=== PATIENT | female | born 1975 | race Caucasian/White ===

== ENCOUNTER 2017-05-10 09:00 | Outpatient (RCR) | payer OTHER | END 2017-06-02 14:04 | disposition home or self-care (01) | LOC: MKS.ESL.PT 09:00 | DX: M25.561 Pain in right knee (principal); M54.12 Radiculopathy, cervical region; Z98.890 Other specified postprocedural states ==

== ENCOUNTER 2018-04-17 06:23 | Inpatient (IN) | payer OTHER ==
[2018-04-17] VITALS (7 sets, daily range): BP systolic 114–133; BP diastolic 60–80; PULSE 79–92; TEMP 98.3–98.4
[~2018-04-17] VITALS: Ht 167.6 cm; Wt 89.1 kg
[2018-04-17] MEDS ORDERED: PRENATAL MVI (19:29)
[2018-04-17 20:19] LABS: BASO % 0.2 % (0.0-2.0); EOS # 0.1 (0.0-0.7); EOS % 0.8 % (0-4.0); GRAN # 7.3 (1.4-6.5); GRAN % 69.7 % (42.2-75.2); HEMATOCRIT 36.4 % (37.0-47.0); HEMOGLOBIN 12.7 g/dl (12.5-16.0); LYMPH # 2.3 (1.2-3.4); LYMPH % 21.7 % (20.0-51.0); MEAN CELL VOLUME 92 fl (80.0-100.0); MEAN CORPUSCULAR HEMOGLOBIN 32 pg (27.0-31.0); MEAN CORPUSCULAR HGB CONC 35 g/dl (33.0-37.0); MEAN PLATELET VOLUME 10.5 fl (7.4-10.4); MONO # 0.7 (0.1-0.6); MONO % 7.1 % (1.7-9.3); PLATELET COUNT 231 K/mm3 (130-400); RED BLOOD COUNT 3.95 M/mm3 (4.10-5.30); REDCELL DISTRIBUTION WIDTH-CV 13.2 % (11.5-14.5)
--- NOTE | 2018-04-17 21:00 | NUR ---
191- Patient ambulatory to LDR-6 with , Jaylon. Patient oriented to room. Patient into restroom to void. 1919- EFM and TOCO on and tracing. Patient denies contractions, LOF, bleeding, or spotting. Patient had US done at [facility] today by . Assessment completed. Consents signed. 1929- IV started. Labs sent. 1999- SVE Closed/-3. Cytotec placed. See eMAR. 2109- See Physician Notification.
[2018-04-18] VITALS (37 sets, daily range): BP systolic 98–149; BP diastolic 48–85; PULSE 69–109; TEMP 97.9–98.7
--- NOTE | 2018-04-18 05:00 | NUR ---
2200- EFM and TOCO off per Cytotec protcol. 2245- EFM and TOCO on and tracing. FHT reassuring. 2300- EFM and TOCO off per Cytotec protocol. 2345- EFM and TOCO on and tracing. FHT reassuring. 0000- SVE Closed/-3. Cytotec 25mg. See eMAR. 0200- EFM and TOCO off per Cytotec protocol. 0245- EFM and TOCO on and tracing. FHT hard to trace due to active baby and maternal position. RN at bedside. FHT heard and reassuring. 0300- EFM and TOCO off per Cytotec protocol. 0345- EFM and TOCO on and tracing. FHT reassuring. 0415- FHT hard to trace due to active baby and maternal position. Moderate variability noted. 0445- Patient up to restroom to void. 0450- SVE Closed/-3 by PHIL rCistobal. Pitocin intiated per protocol at 2mU.
--- NOTE | 2018-04-18 06:15 | NUR ---
Assumed care of patient. Rests in bed with eyes closed. Resperations even and unlabored.
--- NOTE | 2018-04-18 06:45 | NUR ---
Rests in bed, alert. States starting to feel what contractions feel like. Denies any needs at this time.
--- NOTE | 2018-04-18 07:00 | NUR ---
0705 Patient calls out. States has some discharge down there. Amnio test done, moderate amount of red color fluid noted. Amnio swab did not turn. Pad changed, patient repositioned.
--- NOTE | 2018-04-18 08:00 | NUR ---
Ambulates to the bathroom. States might have a bowel movement.
--- NOTE | 2018-04-18 08:45 | NUR ---
Dr. Doss here, visits with patient. Vag exam done, reports cervix thinner than yesterday. Small amount of clear fluid noted with check. New orders given. Dr. Doss states can have fentanyl 50 mcg now.
--- NOTE | 2018-04-18 09:00 | NUR ---
0905 Fentanyl 50 mcg. iv given as ordered by Dr. Doss.
--- NOTE | 2018-04-18 09:30 | NUR ---
Rests in bed, alert. States still feeling contractions. This nurse notices patient pushing. Vag exam done, complete. Dr. Doss notified of patient complete and to come to the hospital. Prepped for delivery. Encouraged patient to breathe through contractions. Patient pushes with contractions uncontrollably. This nurse at bedside.
--- NOTE | 2018-04-18 09:45 | NUR ---
0950 Dr. Doss here, vag exam done. Reports complete. Dr. Doss prepped for delivery. Starts pushing with contractions. 1003 Spontaneous delivery of baby girl by Dr. Doss. 1004 Spontaneous delivery of placenta by Dr. Doss. Pitocin 333ccs an hour iv started as ordered and per policy. Repair work done by Dr. Doss.
--- NOTE | 2018-04-18 10:15 | NUR ---
Rests in bed, alert. Dr. Doss continues to do repair work.
--- NOTE | 2018-04-18 10:45 | NUR ---
Rests in bed, alert. Holds baby, denies any needs at this time.
--- NOTE | 2018-04-18 12:00 | NUR ---
1215 Ambulates to the bathroom. Voids small amount of clear yellow urine. Kim-care instructions given and pad on. Ambulates to room 207. Tolerates well.
--- NOTE | 2018-04-18 12:59 | NUR ---
Ambulates to the nursery to watch bath demo.
--- NOTE | 2018-04-18 14:00 | NUR ---
Rests in bed, alert. Denies any needs at this time.
--- NOTE | 2018-04-18 15:00 | NUR ---
Assist patient with . Baby sleepy, will attempt later. Denies any needs at this time.
--- NOTE | 2018-04-18 18:47 | NUR ---
BEDSIDE REPORT. CARE TAKEN OVER BY THIS RN. PT AMBULATING IN ROOM. SLEEPING IN CRIB. D/C BOARD UPDATED. POC FOR NIGHT DISCUSSED.
[2018-04-19 08:00] VITALS: BP 116/69; PULSE 86; TEMP 97.6
[2018-04-19 08:03] LABS: HEMATOCRIT 37.1 % (37.0-47.0); HEMOGLOBIN 12.7 g/dl (12.5-16.0)
--- NOTE | 2018-04-19 09:58 | NUR ---
Initial visit; Mom thanked [employer] for offering congratulations and God's blessings for the of her daughter. [employer]er thanked Conchita for choosing [facility].
--- NOTE | 2018-04-19 12:20 | NUR ---
Patient given discharge instructions and patient verbalizes understanding. Patient signs papers. Baby tags off at this time. Questions answered.
[2018-04-19] MEDS ORDERED: IBU600 MG PO (12:48)
[2018-04-19 20:20] VITALS: BP 119/70; PULSE 88; TEMP 98.6
[2018-04-20 07:23] VITALS: BP 124/86; PULSE 78; TEMP 98.1
== END 2018-04-20 13:00 | disposition home or self-care (01) | DRG 807 ==
LOC: LDR 09:28 → OB 19:15 → LDR 21:20 → OB 04-18 12:00
PROVIDERS: ADMIT Obstetrics & Gynecology
PROC: 3E0P7VZ Introduction of Hormone into Female Reproductive, Via Natural or Artificial Opening (ICD-10-PCS; 2018-04-17)
PROC: 3E033VJ Introduction of Other Hormone into Peripheral Vein, Percutaneous Approach (ICD-10-PCS; 2018-04-17)
PROC: 10E0XZZ Delivery of Products of Conception, External Approach (ICD-10-PCS; principal; 2018-04-18)
PROC: 0HQ9XZZ Repair Perineum Skin, External Approach (ICD-10-PCS; 2018-04-18)
PROC: 0UQMXZZ Repair Vulva, External Approach (ICD-10-PCS; 2018-04-18)
DX: O70.0 First degree perineal laceration during delivery (principal); Z37.0 Single live birth; Z3A.39 39 weeks gestation of pregnancy; E78.5 Hyperlipidemia, unspecified; O75.89 Other specified complications of labor and delivery; E78.00 Pure hypercholesterolemia, unspecified; O34.13 Maternal care for benign tumor of corpus uteri, third trimester
CPT/HCPCS: J2590; J3010; J7120